=== PATIENT | female | born 1990 ===

== ENCOUNTER 2020-12-09 09:27 | Outpatient (CLI) | payer MEDICAID ==
[2020-12-09] MEDS ORDERED: GABA600T7 PO (10:39)
[2020-12-09] MEDS ORDERED: MELO7.5T31 PO (10:39)
[2020-12-09] MEDS ORDERED: MECL-101 PO (10:39)
[2020-12-09] MEDS ORDERED: CHOL10003 PO (10:39)
[2020-12-09] MEDS ORDERED: MELA2.5T PO (10:39)
[2020-12-09] MEDS ORDERED: HYDR50TA99 PO (10:39)
== END 2020-12-09 23:59 | disposition home or self-care (01) ==
LOC: STAR 09:27
PROVIDERS: ATTEND Orthopaedic Surgery
DX: Z20.822 Contact with and (suspected) exposure to COVID-19 (principal); Q27.31 Arteriovenous malformation of vessel of upper limb
CPT/HCPCS: U0003

== ENCOUNTER 2021-05-16 08:04 | Outpatient (CLI) | payer MEDICAID ==
[~2021-05-16 08:04] MED LIST: CHOL10003 PO; GABA600T7 PO; HYDR50TA99 PO; MECL-101 PO; MELA2.5T PO; MELO7.5T31 PO
[2021-05-16] MEDS ORDERED: ROPI0.254 PO (08:46)
[2021-05-16] MEDS ORDERED: DIPH25CA61 PO (08:46)
[2021-05-16] MEDS ORDERED: NORT25CA78 PO (08:46)
[2021-05-16] MEDS ORDERED: OMEP40CA8 PO (08:46)
[2021-05-16] MEDS ORDERED: HYDR-3248 PO (08:46)
[2021-05-16] MEDS ORDERED: MORP15TA PO (08:46)
[2021-05-16] MEDS ORDERED: MELA10TA PO (08:46)
[2021-05-16] MEDS ORDERED: DICY20TA4 PO (08:47)
[2021-05-16] MEDS ORDERED: POLY17PO5 PO (08:47)
[2021-05-16 09:03] LABS: MICROSCOPIC INDICATED
[2021-05-16 09:07] LABS: BASOPHILS % (AUTO) 1 % (0-1); EOSINOPHILS % (AUTO) 2 % (1-7); LYMPHOCYTES % (AUTO) 19 % (22-44); MEAN CORPUSCULAR HEMOGLOBIN 29.3 pg (27.0-34.8); MEAN CORPUSCULAR HGB CONC 33.5 g/dL (32.4-35.8); MONOCYTES % (AUTO) 8 % (2-9); NEUTROPHILS % (AUTO) 71 % (42-75); PLATELET COUNT 316 x10^3/uL (130-400); RED BLOOD COUNT 4.53 x10^6/uL (3.82-5.3); RED CELL DISTRIBUTION WIDTH 13.8 % (9.6-15.2)
== END 2021-05-16 23:59 | disposition home or self-care (01) ==
LOC: STAR 08:04
PROVIDERS: ATTEND Obstetrics & Gynecology
DX: Z01.812 Encounter for preprocedural laboratory examination (principal); R10.2 Pelvic and perineal pain; Z20.822 Contact with and (suspected) exposure to COVID-19
CPT/HCPCS: 36415; 81001; 85025; 87086; 87635

== ENCOUNTER 2021-05-20 09:40 | Day surgery (SDC) | payer MEDICAID ==
[~2021-05-20] VITALS: Ht 165.1 cm; Wt 54.3 kg
[~2021-05-20 09:40] MED LIST changes: +DICY20TA4 PO; +DIPH25CA61 PO; +HYDR-3248 PO; +MELA10TA PO; +MORP15TA PO; +NORT25CA78 PO; +OMEP40CA8 PO; +POLY17PO5 PO; +ROPI0.254 PO
[2021-05-20 10:05] VITALS: BP 116/79
[2021-05-20] MEDS ORDERED: LACTATED RINGERS 1,000 ML IV SCH (10:30)
[2021-05-20] MEDS ORDERED: CHLORHEXIDINE 15 ML UDC PO ONE (10:30)
[2021-05-20] MEDS ORDERED: MIDAZOLAM 1 MG/ML, 2ML ONE (11:26)
[2021-05-20] MEDS ORDERED: KETAMINE 10 MG/ML, 20ML ONE (11:27)
[2021-05-20] MEDS ORDERED: PROPOFOL 10 MG/ML, 20ML ONE (11:28)
[2021-05-20] MEDS ORDERED: DEXAMETHASONE 4 MG/ML, 1ML ONE ×2 (11:28→11:56)
[2021-05-20] MEDS ORDERED: ONDANSETRON 2MG/ML, 2ML ONE ×2 (11:56)
[2021-05-20] MEDS ORDERED: MEPERIDINE/PF 25MG/ML,1ML ONE (12:24)
[2021-05-20] MEDS ORDERED: hydrALAzine 20 MG/ML, 1ML IV PRN (12:30)
[2021-05-20] MEDS ORDERED: EPHEDRINE 50 MG/ML, 1ML IVPush PRN (12:30)
[2021-05-20] MEDS ORDERED: PROMETHAZINE 12.5 MG SUPP PR PRN (12:30)
[2021-05-20] MEDS ORDERED: ALBUTEROL SULFATE 2.5 MG/3 ML NPPB PRN (12:30)
[2021-05-20] MEDS ORDERED: FENTANYL PF 100 MCG/2ML IV PRN (12:30)
[2021-05-20] MEDS ORDERED: PROMETHAZINE 25 MG/ML, 1ML IVPush PRN (12:30)
[2021-05-20] MEDS ORDERED: LABETALOL 5MG/ML, 20ML IV PRN (12:30)
[2021-05-20] MEDS ORDERED: MIDAZOLAM 1 MG/ML, 2ML IV PRN (12:30)
[2021-05-20] MEDS ORDERED: OXYcodone 5 MG/5 ML ORAL.SOL UDC PO PRN (12:30)
[2021-05-20] MEDS ORDERED: ONDANSETRON 2MG/ML, 2ML IVPush PRN (12:30)
[2021-05-20] MEDS ORDERED: DIAZEPAM 5 MG/ML, 2ML IVPush PRN (12:30)
[2021-05-20] MEDS ORDERED: DIPHENHYDRAMINE 50 MG/ML, 1ML IVPush PRN ×2 (12:30)
[2021-05-20] MEDS ORDERED: MEPERIDINE/PF 25MG/0.5ML IVPush PRN (12:30)
[2021-05-20] MEDS ORDERED: ACETAMINOPHEN 325 MG TABLET PO PRN (12:30)
[2021-05-20] MEDS ORDERED: HYDROmorphone 1 MG/ML, 1ML INJ IVPush PRN (12:30)
[2021-05-20] MEDS ORDERED: PROMETHAZINE 25 MG/ML, 1ML ONE (12:37)
[2021-05-20] MEDS ORDERED: FENTANYL PF 100 MCG/2ML ONE (12:45)
== END 2021-05-20 14:15 | disposition home or self-care (01) ==
LOC: OR 09:40
PROVIDERS: ATTEND Obstetrics & Gynecology
DX: N89.6 Tight hymenal ring (principal); N92.6 Irregular menstruation, unspecified; N94.6 Dysmenorrhea, unspecified; G89.29 Other chronic pain; R10.2 Pelvic and perineal pain; M79.7 Fibromyalgia; J44.9 Chronic obstructive pulmonary disease, unspecified; G43.909 Migraine, unspecified, not intractable, without status migrainosus; F17.210 Nicotine dependence, cigarettes, uncomplicated; Z79.1 Long term (current) use of non-steroidal anti-inflammatories (NSAID); Z79.899 Other long term (current) drug therapy; Z88.8 Allergy status to other drugs, medicaments and biological substances; Z91.030 Bee allergy status
CPT/HCPCS: 36415; 57410; 84702; J1100; J2175; J2250; J2405; J2550; J2704; J3010